=== PATIENT | male | born 1940 | race Caucasian/White ===

== ENCOUNTER → 2018-07-05 10:20 | Outpatient (CLI) | payer MEDICARE, OTHER, SELFPAY ==
[2017-02-19 02:00] VITALS: BMI 30.1
--- NOTE | 2018-07-05 10:20 | MASS_PTH ---
PATIENT: LENORA SHIPLEY LOC: [facility] U#:[id number] AGE/SX: 84/M ROOM: RE07/05/[address]: Dr. Iban Aden MD : 1940 BED: DIS: SPEC #: [id number] RECD: 07/05/18 12:05 STATUS: GUME CRICKET #: [id number] KHARI: 07/05/18 10:[address]: Iban Aden DEPT: SURGICAL PATHOLOGY RECD BY: Angel Chapman Tissues: Neck, NOS Procedures: Surgery Specimen Level III HEADER OPERATION: Excision neck mass (right) PRE-OP DIAGNOSIS: Right neck mass TISSUE SUBMITTED: Excision neck mass (right) MICROSCOPIC DIAGNOSIS Right neck mass, excision: Consistent with epidermal inclusion cyst. SJ:ole 07/08/18 MICROSCOPIC DESCRIPTION Slides are reviewed. GROSS DESCRIPTION Received is one container labeled with the patient's name and not further designated. The specimen consists of multiple irregular fragments of israel soft tissue and skin that in aggregate measure 1.5 x 1.5 x 0.4 cm. The skin piece is bisected. The entire specimen is submitted in one cassette. / SJ:rg 07/05/18 TC:5 [facility]: [id number]
== END ==
PROVIDERS: Family Provider Family Medicine; PCP Family Medicine; Referring Provider Family Medicine; Visit Provider Family Medicine
DX: R22.1 Localized swelling, mass and lump, neck (principal)
CPT/HCPCS: 88304; 88305

== ENCOUNTER → 2018-09-12 15:00 | Outpatient (CLI) | payer MEDICARE, OTHER, SELFPAY ==
[2017-02-19 02:00] VITALS: BMI 30.1
--- NOTE | 2018-09-12 15:00 | CYST_PTH ---
PATIENT: LENORA SHIPLEY LOC: [facility] U#:[id number] AGE/SX: 84/M ROOM: RE09/12/[address]: Dr. Iban Aden MD : 1940 BED: DIS: SPEC #: [id number] RECD: 09/12/18 17:36 STATUS: GUME CRICKET #: [id number] KHARI: 09/12/18 15:[address]: Iban Aden DEPT: SURGICAL PATHOLOGY RECD BY: Titi Drew Tissues: Neck, NOS Procedures: Surgery Specimen Level III HEADER OPERATION: Excision back of neck cyst PRE-OP DIAGNOSIS: Back of neck cyst TISSUE SUBMITTED: Back of neck cyst MICROSCOPIC DIAGNOSIS Back of neck cyst, excision: Skin with underlying tissue with extensive dermal fibrosis, consistent with scar. See comment. SENDY:ole 09/16/18 COMMENT No obvious cyst is noted. Please make reference to previous specimen ([id number]) right neck mass, excision with diagnosis of consistent with epidermal inclusion cyst. MICROSCOPIC DESCRIPTION Slides are reviewed. GROSS DESCRIPTION Received is one container labeled with the patient's name and not further designated. The specimen consists of a israel-white skin ellipse measuring 1.9 x 0.8 cm and up to 0.5 cm in thickness. The specimen is inked, serially sectioned and submitted entirely in one cassette. / SJ:rg 09/13/18 TC:5 CPT: 33260
== END ==
PROVIDERS: Family Provider Family Medicine; PCP Family Medicine; Referring Provider Family Medicine; Visit Provider Family Medicine
DX: L90.5 Scar conditions and fibrosis of skin (principal)
CPT/HCPCS: 88304

== ENCOUNTER → 2019-12-16 16:35 | Outpatient (CLI) | payer MEDICARE, OTHER, SELFPAY ==
[2017-02-19 02:00] VITALS: BMI 30.1
[2019-12-16 17:52] LABS: Absolute Lymphocyte Count 1.41 X10^3/uL (0.83-4.51); Absolute Neutrophil Count 2.9 X10^3/uL (2.0-7.7); Basophil# 0.02 X10^3/uL; Basophil% 0.4 % (0-1); Eosinophil# 0.16 X10^3/uL; Eosinophils% 3.1 % (0-5); Hematocrit 44.3 % (40-54); Hemoglobin 14.9 g/dL (13.0-16.5); Lymphocyte # 1.41 X10^3/ul (4.0); Lymphocyte % 27.2 % (19-41); Mean Corp Hgb Conc 33.6 g/dL (32-36); Mean Corpuscular Hgb 31.4 pg (27.0-32.0); Mean Corpuscular Volume 93.5 fL (80-94); Mean Platelet Vol. 10.1 fl (6.2-12.0); Monocyte# 0.64 X10^3/uL; Monocyte% 12.3 % (0-10); NRBC Flagged by Analyzer 0 % (0-5); Neutrophil # 2.93 X10^3/uL (2.7-7.7); Neutrophil % 56.4 % (47-70); Platelet Count 190 K/mm3 (150-450); RBC Distribution Width CV 12.1 % (11.6-14.6); RBC Distribution Width SD 42.3 fl (35.1-43.9); Red Blood Count 4.74 M/mm3 (4.6-6.2); White Blood Count 5.2 K/mm3 (4.4-11.0)
[2019-12-16 18:23] LABS: AST(SGOT) 20 U/L (15-37); Alanine Aminotransfer ALT/SGPT 31 U/L (16-61); Albumin, Serum 3.3 g/dL (3.2-5.0); Alkaline Phosphatase 104 U/L (45-117); Anion Gap 9 (5-15); BUN 21 mg/dL (7-18); Calcium,Total 9.1 mg/dL (8.5-10.1); Chloride 111 mmol/L (98-107); EST Glomerular Filtration Rate 77 mL/min (>60); Est Glom Filt Rate - Afr Amer 93 mL/min (>60); Globulin 3.3 g/dL (2.2-4.2); Glucose 139 mg/dL (74-106); Potassium 3.8 mmol/L (3.5-5.1); Protein, Total 6.6 g/dL (6.4-8.2); Sodium Level 146 mmol/L (136-145)
--- OUTSIDE RECORDS SUMMARY | 2020-05-02 06:42 | XMS RPT_ITS | CCD ---
:1940 External Reference #:[id number] Author Organization [facility] Care Team Providers Name Role Phone Maura GAN, M Unavailable Allergies Reported Allergen Reaction(s) Severity Date of Onset Location predniSONE dizziness Severe, Severe 11-01-2016 - [facility] ([id number]) Medications Medication Name Sig Date Prescriber Location Aspirin ASPIR-81 81 MG TBEC One [facility] tablet by mouth daily (33342 ) ASPIRIN [id number] Cliff Sydnee Jyotsna hydrOXYzine HYDROXYZINE HCL 25 MG TABS [facility] One tablet by mouth four (52 105) times daily as needed HYDROXYZINE HCL [id number] Cliff Fernandopp Triamcinolone TRIAMCINOLONE ACETONIDE 0.1 [facility] % OINT prn TRIAMCINOLONE (00 636) ACETONIDE [id number] Cliff Goyal Problems Active Problems Category Problem Name Status Date Location Other nutritional; Overweight Active 11-01-2016 - [facility] endocrine; and metabolic (40 344) disorders Past or Other Problems Category Problem Name Status Date Location Abdominal hernia Right inguinal hernia Completed 01-10-2017 - [facility] ([id number]) Abdominal pain Inguinal pain Completed 11-01-2016 - [facility] ([id number]) Results Result Name Value Range Unit Interpretation Flag Date Location office visit: right inguinal hernia repa ir on 2017-01-10 Fall risk assessment No - [facility] 01-10-2017 [facility] ([id number]) Protein mass conc Done 01-10-2017 - [facility] 01-10-2017 [facility] ([id number]) Tobacco smoking status Never - [facility] Surgical [facility] 01-10-2017 [facility] ([id number]) Tobacco smoking status Never smoker 12-15-2016 - [facility] Surgical [facility] 01-10-2017 [facility] ([id number]) lab report: prothrombin time w/inr on 2016-12-27 INR Coag RelTime 1.1 {INR} 12-27-2016 [facility] Surgical (PPP) 12-27-2016 [facility] ([id number]) Prothrombin time 13.3 SECONDS 11.7-14. s 12-27-2016 - [facility] Surgical (PT) Coag time (PPP) 9 7 Associates ([id number]) lab report: partial thromboplast time on 2016-12-27 aPTT Coag time 28.7 24.1-36.2 s 12-27-2016 - [facility] (Bld) ([id number]) lab report: liver profile on 2016-12-27 Albumin mass conc 3.6 3.4-5.0 g/dL 12-27-2016 - [facility] 12-27-2016 [facility] ([id number]) ALP enzyme act/vol 100 45-117 U/L 12-27-2016 - [facility] Surgical (Bld) 12-27-2016 [facility] ([id number]) ALT enzyme act/vol 24 12-78 U/L 12-27-2016 - [facility] 12-27-2016 [facility] ([id number]) AST enzyme act/vol 17 15-37 U/L 12-27-2016 - [facility] 12-27-2016 [facility] ([id number]) Bilirubin mass conc 1.70 0.20-1.00 mg/dL High 12-27-2016 - [facility] Surgical 12-27-2016 [facility] ([id number]) Bilirubin.direct 0.30 0.00-0.30 mg/dL 12-27-2016 - [facility] Surgical mass conc 12-27-2016 [facility] ([id number]) Globulin mass conc 3.2 2.3-3.5 g/dL 12-27-2016 - [facility] Surgical (S) 12-27-2016 [facility] ([id number]) Protein mass conc 6.8 6.4-8.2 g/dL 12-27-2016 - [facility] Surgical 12-27-2016 [facility] ([id number]) lab report: cbc-complete blood cnt no di ff on 2016-12-27 Erythrocyte 12.3 11.6-14.6 % 12-27-2016 - [facility] S urgical distribution width 12-27-2016 Associates Ratio (RBC) ([id number]) Erythrocyte 39.9 35.1-43.9 fL 12-27-2016 - [facility] S urgical distribution width 12-27-2016 [facility] Ratio (RBC) ([id number]) Hematocrit Volume 45.2 40-54 % 12-27-2016 - [facility] Surgical Fraction (Bld) 12-27-2016 [facility] ci[facility] ([id number]) Hemoglobin mass conc 15.7 13.0-16.5 g/dL 7 - [facility] Surgical (Bld) 12-27-2016 Associate [facility] ([id number]) MCH Entitic mass 31.3 27.0-32.0 pg 12-27-2016 - [facility] Surgical (RBC) 12-27-2016 [facility] ([id number]) MCHC mass conc (RBC) 34.7 G/GL 32-36 - [facility] 12-27-2016 Associate [facility] ([id number]) MCV Entitic volume 90.0 80-94 fL 12-27-2016 - [facility] Surgical (RBC) 12-27-2016 Associate [facility] ([id number]) Platelet mean volume 9.3 6.2-12.0 fL - [facility] Surgical Entitic volume (Bld) 7 Associates ([id number]) Platelets #/vol 214 150-450 10*3/mm3 12-27-2016 - [facility] (Bld) 12-27-2016 [facility] ([id number]) RBC #/vol (Bld) 5.02 4.6-6.2 10*6/uL 12-27-2016 - [facility] 12-27-2016 [facility] ([id number]) WBC #/vol (Bld) 5.5 4.4-11.0 10*9/L 12-27-2016 - [facility] 12-27-2016 [facility] ([id number]) office visit: new patient consult- direc t right inguinal hernia on 2016-11-01 Fall risk assessment No 7 - [facility] 11-01-2016 Associate [facility] ([id number]) Protein mass conc Done 11-01-2016 - [facility] 11-01-2016 Associate [facility] ([id number]) Tobacco smoking status Never smoker - - [facility] Surgical [facility] 11-01-2016 Associate [facility] ([id number]) Tobacco smoking status Never - [facility] 11-01-2016 [facility] ([id number]) Vital Signs Vital Sign Description Value / Unit Date Location The following section is limited to 5 en tries per type and includes entries from the following time range: 20161101 - [id number] 9. BMI (Body Mass Index) 29.43 kg/m2 11-01-2016 - 11-01-2016 [facility] ([id number]) Body Temperature 98.29 [degF] 11-01-2016 - 11-01-2016 [facility] ([id number]) Body Temperature 98.3 [degF] 11-01-2016 - 11-01-2016 [facility] ([id number]) BP Diastolic 79 mm[Hg] 11-01-2016 - 11-01-2016 [facility] ([id number]) BP Systolic 125 mm[Hg] 11-01-2016 - 11-01-2016 [facility] ([id number]) BSA (Body Surface Area) 2.16 m2 11-01-2016 - 11-01-2016 [facility] ([id number]) Height 180.34 cm 01-10-2017 - 01-10-2017 [facility] ([id number]) Height 180.34 cm 11-01-2016 - 11-01-2016 [facility] ([id number]) Pulse (Heart Rate) 71 /min 11-01-2016 - 11-01-2016 [facility] ([id number]) Pulse Oximetry 95 % 11-01-2016 - 11-01-2016 [facility] ([id number]) Respiratory Rate 16 /min 11-01-2016 - 11-01-2016 [facility] ([id number]) Weight 95.71 kg 11-01-2016 - 11-01-2016 [facility] ([id number]) Procedures Procedure Name Date Provider Location Dietary management 01-10-2017 - [facility] Surgical education, guidance, 01-10-2017 [facility] ([id number]) and counseling Dietary management 11-01-2016 - [facility] Surgical education, guidance, 11-01-2016 [facility] ([id number]) and counseling Ct abdomen & pelvis w/o 11-01-2016 - Theo Lorenzo MD [facility] Surgical contrast material 12-28-2016 Associates ([id number]) Ct lumbar spine w/o 11-01-2016 - Theo Lorenzo MD [facility] Surgical contrast material 12-28-2016 [facility] ([id number]) Plan of Treatment Plan Description Date Location Appointment Appointment 01-10-2017 - [facility] 01-10-2017 Associates ([id number]) Follow Up as needed Follow Up as needed 01-10-2017 - [facility] Surg ical 01-10-2017 Associates ([id number]) CT Abdomen and pelvis; CT Abdomen and pelvis; 11-01-2016 - [facility] without contrast without contrast 12-28-2016 Associates ([id number]) material material CT Lumbar Spine CT Lumbar Spine 11-01-2016 - [facility] 12-28-2016 [facility] ([id number]) Patient education WEIGHT%20MANAGEMENT [facility] ([id number] 1) Additional Source Comments FOR RECORDS PERTAINING TO PATIENTS WHO ARE OR HAVE BEEN ENROLLED IN A CHEMICAL DEPENDENCY/SUBSTANCE ABUSE PROGRAM, SOME INFORMATION MAY BE OMITTED. This clinical summary was aggregated from multiple sources. Caution should be exercised in using it in the provision of clinical care. This summary normalizes information from multiple sources, and as a consequence, information in this document may materially changethe coding, format and clinical context of patient data. In addition, data may be omittedin some cases. CLINICAL DECISIONS SHOULD BE BASED ON THE PRIMARY CLINICAL RECORDS. [facility] provides no warranty or guarantee of the accuracy or completeness of information in this document.
== END ==
PROVIDERS: PCP Family Medicine; Referring Provider Family Medicine; Visit Provider Family Medicine
DX: R55 Syncope and collapse (principal)
CPT/HCPCS: 36415; 80053; 85025

== ENCOUNTER → 2020-12-28 07:25 | Outpatient (CLI) | payer MEDICARE, OTHER, SELFPAY ==
[2017-02-19 02:00] VITALS: BMI 30.1
[2020-12-28 10:51] LABS: Anion Gap 3 (5-15); BUN 22 mg/dL (7-18); BUN/Creat Ratio 24.3 RATIO (10-20); Calcium,Total 8.7 mg/dL (8.5-10.1); Chloride 107 mmol/L (98-107); Cholesterol 227 mg/dL (200); Creatinine, Serum 0.91 mg/dL (0.70-1.30); EST Glomerular Filtration Rate 86 mL/min (>60); Est Glom Filt Rate - Afr Amer 104 mL/min (>60); Glucose 99 mg/dL (74-106); High Density Lipoprotein 54 mg/dL; Potassium 4.1 mmol/L (3.5-5.1); Sodium Level 140 mmol/L (136-145); Triglycerides 59 mg/dL; Very Low Density Lipoprotein 12 mg/dL (5-40)
== END ==
PROVIDERS: PCP Family Medicine; Referring Provider Family Medicine; Visit Provider Family Medicine
DX: Z00.00 Encounter for general adult medical examination without abnormal findings (principal); Z12.5 Encounter for screening for malignant neoplasm of prostate
CPT/HCPCS: 36415; 80048; 80061; 84153; G0103

== ENCOUNTER → 2021-01-01 07:01 | Outpatient (CLI) | payer MEDICARE, OTHER, SELFPAY ==
--- NOTE | 2021-01-01 07:45 | MRI_ITS ---
STUDY: MRI BRAIN WITHOUT CONTRAST REASON FOR EXAM: Male, 80 years old. HORIZONTAL NYSTAGMUS TECHNIQUE: Standardized multiplanar fat and water weighted pulse sequences were obtained. COMPARISON: CT 02/19/2017 FINDINGS: There is mild cerebral atrophy with widening of the extra-axial spaces and ventricular dilatation. Normal white matter tracts of the supratentorial brain. There is no evidence for recent intracranial ischemia or other cause of cytotoxic edema on diffusion weighted imaging (DWI). Normal T2* images of the brain without demonstrated susceptibility artifact. There is no demonstrated hemosiderin stain. Normal bilateral basal ganglia. Normal thalami. There is no extra-axial fluid accumulation. Normal flow voids within the major intracranial circulation suggesting patency by spin echo criteria. Normal sella turcica, pituitary gland, infundibular stalk, optic chiasm and hypothalamus. Normal tectal plate and pineal gland. Normal midbrain, delta and medulla. Normal cerebellum. Normal basal cisterns. Normal bilateral temporal bones. Normal bilateral internal auditory canals. There are bilateral ocular lens implants with otherwise normal intraorbital contents. Normal visualized paranasal sinuses. Normal calvarium and skull base. Normal visualized soft tissue structures. Normal visualized upper cervical spine. MRI/Brain without Contrast IMPRESSION: Involutional changes of the brain, as described above. No acute infarct. Electronically Signed: Angel Cabral MD at 8:23 EDT Tel , Service support ,
== END ==
PROVIDERS: PCP Family Medicine; Referring Provider Family Medicine; Visit Provider Family Medicine
DX: H55.09 Other forms of nystagmus (principal); R26.89 Other abnormalities of gait and mobility
CPT/HCPCS: 70551

== ENCOUNTER 2021-01-31 16:27 | Emergency (ER) | payer MEDICARE, OTHER, SELFPAY ==
[2021-01-31 16:28] VITALS: BP 159/140; PULSE 78; RESP 18; TEMP 36.5; O2SAT 96; BMI 29.1
--- NOTE | 2021-01-31 16:56 | CT_ITS ---
HISTORY: neck pain EXAMINATION: CT Spine Cervical W/O Contrast Injection TECHNIQUE: Helically acquired images were obtained of the cervical spine. 2D reformatted images were reviewed. A radiation dose optimization technique was used for this scan. IV Contrast dosage and agent: None. COMPARISON: None FINDINGS: VERTEBRAE: No fracture or traumatic subluxation. No discrete lytic or blastic abnormality observed. 4 mm spondylolisthesis at C7/T1. Normal craniocervical junction and cervicothoracic junction. DISCS and SPINAL CANAL: Degenerative discogenic changes are noted. No critical stenosis. NECK SOFT TISSUES: No prevertebral soft tissue swelling. LUNG APICES: Clear. CT/Spine Cervical without Contras IMPRESSION: Degenerative changes. No evidence of acute cervical spinal fracture. Individualized dose optimization techniques were used for this CT. at 1956 Reported and signed by: Joel Erickson MD Electronically Signed: Joel Erickson MD at 19:55 EDT Tel , Service support ,
--- NOTE | 2021-01-31 16:56 | CT_ITS ---
HISTORY: headache TECHNIQUE: Multiple axial images were obtained of the brain without intravenous contrast. A radiation dose optimization technique was used for this scan. IV Contrast dosage and agent: None. COMPARISON: 02/19/17 FINDINGS: # of images incl. paperwork: [id number] PARANASAL SINUSES AND MASTOID AIR CELLS: Clear. INTRACRANIAL HEMORRHAGE: None. BRAIN PARENCHYMA: No CT evidence of stroke. No intracranial masses. There is preservation of the yeh/white matter interface. Posterior fossa structures are unremarkable. There is hypoattenuation of the periventricular white matter. Chronic involutional changes are noted. CSF SPACES: Appropriate for age. There is no hydrocephalus. MASS EFFECT: None. CALVARIUM: No acute fracture. CT/Brain/Head without Contrast IMPRESSION: Chronic involutional and white matter changes. No acute intracranial process. Individualized dose optimization techniques were used for this CT. at 1920 Reported and signed by: Joel Erickson MD Electronically Signed: Joel Erickson MD at 19:19 EDT Tel , Service support ,
[2021-01-31] MEDS: oxyCODONE 5 MG Tablet PO ×2 (17:27→21:27)
--- NOTE | 2021-01-31 21:03 | EX.ED.GENINJ ---
HPI History of Present Illness Chief Complaint: Other, Pain/Inj Informant: patient and spouse/S.O. Narrative Narrative: This patient presents with soreness in his neck. He states he does have a history of significant arthritis. He occasionally has had problems but has been a while. He states on Sunday morning he went to the [place]. He was not swimming or doing things such as that. But he did sit in a slightly uncomfortable chair for many hours out at the fire. He then slept in an abnormal bed that had just a small amount of foam. Ever since getting up he has had soreness in his upper neck. Is on both sides and central. It does not radiate other than locally. He has no numbness tingling weakness. This is not thunderclap type headache. No neurologic symptom. No fevers chills sweats or rash. Staying still makes it much better. Any motion makes it worse. He put a heat pack on it and seems to have gotten worse. No chest pain. No trouble breathing. No tearing or ripping sensation. All of the pain is at the upper portion of his neck. PFSH PFSH Home Medications aspirin 81 mg PO QODAY 12/25/16 [History Last Taken 11/21/16] oxycodone-acetaminophen [Percocet] 1 tab PO Q6H PRN 3 Days #12 tab 01/31/21 [Rx Last Taken Unknown] prednisone 60 mg PO DAILY #15 tab 01/31/21 [Rx Last Taken Unknown] Allergy/AdvReac Type Severity Reaction Status Date / Time No Known Allergies Allergy Verified 01/31/21 16:29 Surgical History (Updated 01/31/21 @ 17:32 by Dori Kang RN) H/O hernia repair Social History Smoking Status: Never smoker ROS ROS ED Constitutional Constitutional ED: Denies chills, fever(s) or sweats Eyes Eyes: Denies blurry vision or change in vision ENT ENT ED: Denies rhinorrhea or sore throat Cardiovascular Cardiovascular: Denies chest pain Respiratory/Chest Respiratory/Chest: Denies cough or dyspnea Gastrointestinal Gastrointestinal: Denies abdominal pain, nausea or vomiting Musculoskeletal Musculoskeletal: Reports neck pain; Denies arthralgias, back pain or myalgias Integumentary Denies rash Neurologic Neurologic: Reports headache(s), paresthesias and other Details: Headache is described in the back of the head only and is really her neck area. Psychiatric Psychiatric: Denies depression Endocrine Endocrinology: Denies polyuria Hematologic/Lymphatic Hematologic/Lymphatic: Denies easy bleeding or easy bruising Allergic/Immunologic Allergic/Immunologic ED: Denies urticaria EXAM Physical Exam Const Vital Signs: 01/31/21 16:28 Temperature 97.7 F L Temperature Source Temporal Pulse Rate 78 Respiratory Rate 18 Blood Pressure 159/140 H Blood Pressure Mean 146 Pulse Ox 96 Oxygen Delivery Method Room Air Positive well nourished and well developed; Negative for unkempt General Appearance ED: well developed; Negative for unkempt or NAD HEENT atraumatic Eyes PERRL and EOMs intact bilaterally Neck Neck Narrative: Patient has some tenderness paraspinally on the neck really at the high cervical area. There is no erythema. There is no mass. There is no meningismus but he is just sore to move. He feels himself still he is well. He can move the lower back and legs without any symptoms. This seems very musculoskeletal. General: tenderness Chest Wall inspection of chest normal Resp normal respiratory effort and clear to auscultation bilaterally Cardio regular rhythm Rate: regular rate GI normal to inspection, nondistended, normoactive bowel sounds and non-tender Palpation: soft Back/Spine normal to inspection Back/Spine Narrative: See above regarding neck. Extremity normal to inspection Neuro oriented x3 Sensorium / Orientation: alert Psych Appearance: Negative for unkempt MDM MDM MDM Narrative Medical decision making narrative: Patient's scans of the neck and head shows no acute process but does show significant arthritis. He is treated with meds for pain. This did help but is starting to wear off. Patient states that about 10 years ago he was on meds for about 2 weeks that calm down his arthritis. I wonder if this was a steroid. I will place him on a short course. Along with pain meds. Radiography Diagnostic Testing: Radiology Impression Brain CT 01/31/21 16:56 IMPRESSION: Chronic involutional and white matter changes. No acute intracranial process. Individualized dose optimization techniques were used for this CT. at 1920 Reported and signed by: Joel Erickson MD Electronically Signed: Joel Erickson MD at 19:19 EDT Tel , Service support , Cervical Spine CT 01/31/21 16:56 IMPRESSION: Degenerative changes. No evidence of acute cervical spinal fracture. Individualized dose optimization techniques were used for this CT. at 1956 Reported and signed by: Joel Erickson MD Electronically Signed: Joel Erickson MD at 19:55 EDT Tel , Service support , Discharge Plan Triage Chief Complaint: Other, Pain/Inj ED Provider: Haile Baez Dx/Rx/DC Orders Clinical Impression: Cervical strain Instructions: ED Neck Sprain or Strain Prescriptions: New oxycodone-acetaminophen [Percocet] 5-325 mg tablet 1 tab PO Q6H PRN (Reason: pain) 3 Days Qty: 12 RF: 0 prednisone 20 mg tablet 60 mg PO DAILY Qty: 15 RF: 0 No Action aspirin 81 MG tablet,chewable 81 mg PO QODAY RF: 0 Primary Care Provider: Iban Aden Referrals: Iban Aden MD [Primary Care Provider] - 3-5 Days if not improving Disposition Disposition: Home, Self Care
[2021-01-31] MEDS: predniSONE 20 MG Tablet 60 MG PO (21:30)
== END 2021-01-31 21:34 | disposition home or self-care (01) ==
PROVIDERS: Emergency Provider Emergency Medicine; PCP Family Medicine
DX: S16.1XXA Strain of muscle, fascia and tendon at neck level, initial encounter (principal); X58.XXXA Exposure to other specified factors, initial encounter; Y93.9 Activity, unspecified; Y92.9 Unspecified place or not applicable; Y99.9 Unspecified external cause status; M19.90 Unspecified osteoarthritis, unspecified site; Z79.82 Long term (current) use of aspirin; Z79.52 Long term (current) use of systemic steroids
CPT/HCPCS: 70450; 72125; 99283; J7030

== ENCOUNTER 2022-01-25 09:00 | Outpatient (RCR) | payer MEDICARE, OTHER, SELFPAY ==
--- NOTE | 2021-12-27 14:43 | HP.PTEVAL_ITS ---
Patient's Visit Information LENORA SHIPLEY is a 81 year old M referred to Physical Therapy by Dr. Iban Aden MD with a diagnosis of BALANCE ISSUES. Date of Evaluation: 12/27/21 Physical Therapist: Parminder Ghotra PT, Cert MDT, OCS - Visit Plan Frequency: 2x /Week Duration: 4 Weeks Plan: PT INTERVENTIONS PROGRESSIVE BALANCE PROGRAM ,GAIT TRAINING,ENDURANCE AND FUNCTIONAL STRENGTHENING - Subjective This 81 y/o male presents to physical therapy with impaired balance. Patient has had gait issues with leaning to side my gait is not normal . Patient seen DR felix PT . Patient had syncope episode as patient describing. Patient has ability to do stairs. Patient describes no pain . Patient denies paresthesia/tingling .Patient has difficulty walking on uneven surfaces. Patient denies any weakness . Patient has no episodes dizziness with supine-sit or sit- stand for orthostatic. Patient has had carotid arties checked. Also last 2 weeks ago had heart monitor worn. Patient denies nausea/VIDALES Patient describes no weakness. Patient reports difficulty walking on uneven surfaces such as grass. Patient has had Patient goals to improve balance and walking. SOCAIL: . VOCATION: retired - Objective POSTURE: WFL. NEURO: denies paresthesia/tingling, reflexes Achilles/patella 1/3. PALAPTION: unremarkable. FLEXABLITY : hamstrings min tight. MMT: quads/hams 4/5,hip 4/5,ankle 5/5. GAIT: reciprocal pattern mild forward lalit - Balance/Special Test Scores Functional Gait Assessment Score: 18 % Disability: 40.0000 CATSIB Score (Max score 120 seconds): 90 Lower Extremity Functional Score: 42 30 Second Chair Rise Test Seconds: 10 - Goals Goal 1:: Patient to be I with HEP for balance Goal Time Frame: 4-6 Weeks Goal 2:: Patient to improve CATSIB BY 5-10 improve balance and risk of falls Goal Time Frame: 4-6 Weeks Goal 3:: Patient to improve functional gait assessment score by 5-10 points to improve gait and decrease risk of falling Goal Time Frame: 4-6 Weeks Goal 4:: Patient to LFES score by 5-10 points to improve QOL and gait Goal Time Frame: 4-6 Weeks Goal 5:: Patient to improve 30sec sit-stand by 3-5 to improve function Goal Time Frame: 4-6 Weeks - Rehabilitation Potential Physical Therapy Diagnosis: This 81 y/o male has balance deficits with decrease CATSCIB ,functional gait assessment and decrease ability with uneven surfaces with impaired deficits on 3 inputs with balance somatosensory, vision and vestibular thus benefit from skilled PT Rehabilitation Potential: Good - Anticipated Interventions Patient/Client Instruction: Educate patient on: Condition, Plan of Care For the Purpose of:: To improve muscle performance and motor function, To improve ability to perform ADL's, To increase tolerance to activity/condition/position, To improve performance and independence with ADL's, To improve ability of physical actions for home/community/work/leisure, To improve gait and locomotor functions, To improve endurance, To improve balance, To improve safety with gait Therapeutic Exercise to Include: Strength training, Endurance training, Balance training, Postural training, Flexibilty training, Gait and locomotor training Comment: BLE For the Purpose of:: To increase ROM, To improve muscle performance and motor function, To improve ability to perform ADL's, To increase tolerance to activity/condition/position, To improve ability of physical actions for home/ community/work/leisure, To increase flexibility/ROM, To improve endurance, To improve balance, To improve safety with gait Thank you for the opportunity to evaluate your patient. For Medicare and Medicare HMO plans, please review the plan of care and approve it. It will need to be FAXED BACK to us at [phone] for Medicare purposes. For Medicare only, by signing this I certify the plan of care. Please let me know if there are questions or concerns regarding this plan of care. Physician Signature: Date:
--- NOTE | 2022-01-25 09:26 | HP.PTDCSUM ---
It has been my pleasure to treat LENORA SHIPLEY referred by Dr. Iban Aden MD, with the diagnosis of BALANCE ISSUES for a total of 9 visit(s). Discharge Date: 01/25/22 Please see the following information for a summary of their discharge status. Subjective: Doing well . Patient had to wear heart monitor will check with DR with results. No falls.. PT helped overall a lot % Improvement: 25 Objective/Function: Good tolerance to progression of dual tasking balance and coordination activities. Improving motor control when compared to previous visit. Most difficulty coordinating reciprocal movement of right leg and left arm. Demonstrates improvement in functional mobility as TUG times all recorded <10 secs. Goal 1:: Patient to be I with HEP for balance Goal Progress: Goal Met Goal 2:: Patient to improve CATSIB BY 5-10 improve balance and risk of falls Goal Progress: Goal Met Goal 3:: Patient to improve functional gait assessment score by 5-10 points to improve gait and decrease risk of falling Goal Progress: Goal Met Goal 4:: Patient to LFES score by 5-10 points to improve QOL and gait Goal 5:: Patient to improve 30sec sit-stand by 3-5 to improve function Goal Progress: Goal Met Plan: D/C Discharge Comments: HEP If there are questions or concerns regarding this patient's physical therapy, please feel free to call me at [phone]. Thank you for the referral of this patient. Sincerely, Parminder Ghotra, PT, Cert MDT, OCS Balance/Gait/Functional tests - Balance/Special Test Scores Functional Gait Assessment Score: 28 % Disability: 6.6700 CATSIB Score (Max score 120 seconds): 105 Lower Extremity Functional Score: 54 30 Second Chair Rise Test Seconds: 10
== END 2022-01-25 19:00 | disposition home or self-care (01) ==
LOC: PT 09:00
PROVIDERS: PCP Family Medicine; Referring Provider Family Medicine; Visit Provider Family Medicine
DX: R26.9 Unspecified abnormalities of gait and mobility (principal)
CPT/HCPCS: 97110; 97162; 97530

== ENCOUNTER → 2022-03-10 | Outpatient (CLI) | payer MEDICARE, OTHER, SELFPAY ==
--- NOTE | 2022-03-10 12:32 | CT_ITS ---
STUDY: CT BRAIN WITHOUT CONTRAST REASON FOR EXAM: Male, 81 years old. Syncope; right arm weakness -- r/o CVA RADIATION DOSAGE (If Supplied By Facility): CTDIvol = ( 44.99 ) mGy, DLP = ( 846.73 ) mGycm TECHNIQUE: Transaxial CT imaging of the brain was performed without administration of intravenous contrast material. Individualized dose optimization techniques were used for this CT. COMPARISON: Comparison is made with prior study dated 01/31/2021. FINDINGS: Normal soft tissue structures. Normal calvarium. There is mild cerebral atrophy with widening of the extra-axial spaces and ventricular dilatation. There are areas of decreased attenuation within the white matter tracts of the supratentorial brain, consistent with microvascular disease changes. Normal basal ganglia and thalami. Normal brainstem. There is mild cerebellar atrophy. There is no intracranial hemorrhage. There are no findings of an acute ischemic infarction. Atherosclerotic calcification of the cavernous portions of the internal carotid arteries bilaterally. Normal visualized paranasal sinuses. CT/Brain/Head without Contrast IMPRESSION: Chronic involutional changes of the brain. Electronically Signed: Helder Azevedo MD at 12:56 EDT ,
== END | disposition home or self-care (01) ==
LOC: CT 12:30
PROVIDERS: PCP Family Medicine; Referring Provider Internal Medicine Cardiovascular Disease; Visit Provider Internal Medicine Cardiovascular Disease
DX: R55 Syncope and collapse (principal); R29.898 Other symptoms and signs involving the musculoskeletal system; I65.29 Occlusion and stenosis of unspecified carotid artery; R07.9 Chest pain, unspecified; R00.0 Tachycardia, unspecified
CPT/HCPCS: 70450

== ENCOUNTER → 2022-03-15 | Outpatient (CLI) | payer MEDICARE, OTHER, SELFPAY ==
--- NOTE | 2022-03-15 06:11 | CDU_ITS ---
Reason For Study: Syncope Rt. Velocities/BP Lt. Velocities/BP Prox CCA 49/10 cm/sec. Prox CCA 53/9 cm/sec. Mid CCA 56/12 cm/sec. Mid CCA 67/13 cm/sec. Dist CCA 53/12 cm/sec. Dist CCA 59/11 cm/sec. Prox ICA 78/17 cm/sec. Prox ICA 63/14 cm/sec. Mid ICA 58/19 cm/sec. Mid ICA 48/18 cm/sec. Dist ICA 54/16 cm/sec. Dist ICA 88/36 cm/sec. Rt. ICA/CCA = 1.4. Lt. ICA/CCA = 1.3. Prox ECA 45 cm/sec. Prox ECA 68/8 cm/sec. Rt. Vert. 34 cm/sec. Lt. Vert. 40/11 cm/sec. Right Extracranial There is heterogeneous, irregular atherosclerotic plaque noted in the right common carotid artery. There is heterogeneous, irregular atherosclerotic plaque noted in the right internal carotid artery. There is no significant atherosclerotic plaque noted in the right external carotid artery. Antegrade flow is noted in the right vertebral artery. Left Extracranial There is heterogeneous, smooth atherosclerotic plaque noted in the left common carotid artery. There is heterogeneous, irregular atherosclerotic plaque noted in the left internal carotid artery. There is no significant atherosclerotic plaque noted in the left external carotid artery. Antegrade flow is noted in the left vertebral artery. Procedure Carotid Duplex 21575. This is a Carotid Duplex examination using B-mode, color flow and specral Doppler. Exam performed in department. VL/Carotid Duplex Ultrasound Interpretation Summary Mild (<50%) stenosis right extracranial internal carotid. Mild (<50%) stenosis left extracranial internal carotid. Patent and antegrade vertebrals bilaterally. Ordering Physician: Iban Cook Referring Physician: Iban Aden Performed By: Autumn Morocho, LORETTA, RVT
--- NOTE | 2022-03-15 06:11 | ECHOD_ITS ---
Reason For Study: Syncope Procedure This was a 2D Doppler, Color Flow transthoracic echocardiogram. The exam was of adequate technical quality. Exam performed in department. Left Ventricle Normal LV size. Left ventricular systolic function is normal. The estimated ejection fraction is 55 %. No evidence for diastolic dysfunction. No regional wall motion abnormalities noted. Right Ventricle Normal RV size. Normal systolic function. Atria Normal left atrium. Normal right atrium. Bubble contrast study negative for right to left interatrial shunt. Mitral Valve There is no mitral annular calcification. Normal mitral valve. Moderate (2+) mitral valve insufficiency. Tricuspid Valve Normal tricuspid valve. Trivial tricuspid valve insufficiency. Right ventricular systolic pressure estimated to be 21 mmHg. Aortic Valve Trisinus/trileaflet aortic valve. Mild focal aortic valve thickening. Mild focal aortic valve calcification. Trivial aortic valve insufficiency. Pulmonic Valve The pulmonic valve is not well visualized. Trivial pulmonic valve insufficiency. Great Vessels Borderline enlarged aortic root. Pericardium/Pleural No pericardial effusion. Medication 20 gauge I.V. with prn adaptor inserted into right arm. Performed a rapid injection of agitated mix of 9 cc saline and 1cc air to assess for atrial septal defect. MMode/2D Measurements & Calculations LVIDd: 4.7 cm IVSd: 1.2 cm Ao root diam: 3.9 cm LVIDs: 3.5 cm LVPWd: 1.0 cm LA dimension: 3.6 cm RVDd: 3.0 cm FS: 25.2 % LAV(MOD-bp): 53.4 ml LA A4 area: 18.8 cm2 RA A4 area: 15.7 cm2 LAV(MOD-bp) Indexed: 24.3 ml/m2 LAV(MOD-sp2): 53.7 ml LAV(MOD-sp4): 52.4 ml Time Measurements MV dec time: 0.28 sec Doppler Measurements & Calculations MV E max david: 49.9 cm/sec Lat Peak E' David: 3.9 cm/sec Med Peak E' David: 4.2 cm/sec MV A max dvaid: 87.4 cm/sec E/E' lat: 12.8 E/E' med: 11.9 MV E/A: 0.57 MV V2 max: 84.4 cm/sec MV P1/2t max david: 53.1 cm/sec Ao V2 max: 178.0 cm/sec MV max P.8 mmHg MV P1/2t: 108.4 msec Ao max P.7 mmHg MV V2 mean: 40.2 cm/sec MV dec slope: 143.6 cm/sec2 Ao V2 mean: 123.5 cm/sec MV mean P.80 mmHg Ao mean P.0 mmHg MV V2 VTI: 31.1 cm MVA(P1/2t): 2.0 cm2 Ao V2 VTI: 43.0 cm AI max david: 492.2 cm/sec LV V1 max: 75.7 cm/sec MR max david: 502.7 cm/sec AI max P.1 mmHg LV V1 max P.3 mmHg MR max P.1 mmHg AI dec slope: 192.1 cm/sec2 MR mean david: 400.1 cm/sec AI P1/2t: 750.6 msec MR mean P.1 mmHg MR VTI: 222.3 cm PA V2 max: 82.1 cm/sec PI end-d david: 124.6 cm/sec TR max david: 214.5 cm/sec TR max P.4 mmHg ECHO/Echo Complete Interpretation Summary Left ventricular systolic function is normal. The estimated ejection fraction is 55 %. Moderate (2+) mitral valve insufficiency. Trivial tricuspid valve insufficiency. Mild focal aortic valve thickening. Mild focal aortic valve calcification. Trivial aortic valve insufficiency. Trivial pulmonic valve insufficiency. Borderline enlarged aortic root. Right ventricular systolic pressure estimated to be 21 mmHg. No evidence for diastolic dysfunction. Ordering Physician: Iban Cook Referring Physician: Iban Cook Performed By: Kev Shea RCS
--- NOTE | 2022-03-15 18:18 | STRESSREP_ITS ---
Stress Test Report Date: 03-15-2022 Procedure: Pharmacologic stress nuclear imaging study Indications: Syncope; chest pain; cardiac ectopy Consent: Per the patient Procedure: The patient underwent pharmacologic (Regadenoson 0.4mg ) evaluation with a peak heart rate of 78 beats per minute (55%predicted maximal heart rate) and a peak blood pressure of 142/80 mmHg. The baseline ECG demonstrated sinus bradycardia; poor R wave progression. The peak pharmacologic ECG demonstrated no obvious ECG changes. There were no cardiac dysrhythmias pretest, during pharmacologic infusion, or recovery. There was no complaint of chest discomfort during pharmacologic infusion or recovery. The examination was discontinued secondary to completion of protocol. Impression: 1. Pharmacologic (Regadenoson) evaluation 2. Peak pharmacologic ECG with no obvious ECG changes. 3. There were no cardiac dysrhythmias pretest, during pharmacologic infusion, or recovery. 4. Nuclear images pending Myocardial perfusion imaging study: Technique: The patient was injected with 14.5 millicuries of technetium 99m Cardiolite and subsequently rest SPECT Cardiolite nuclear imaging was obtained in the horizontal long, vertical long, and short axis views. The patient underwent pharmacologic (Regadenoson) evaluation with a peak heart rate of 78 beats per minute (55% percent predicted maximal heart rate) and a peak blood pressure of 142/80 mmHg. The patient was injected with 44.4 millicuries of technetium 99m Cardiolite and subsequently stress SPECT Cardiolite nuclear imaging was obtained in the horizontal long, vertical long, and short axis views. A gated Cardiolite study at peak stress was obtained. Interpretation: Rest and stress SPECT Cardiolite nuclear imaging status post realignment, normalization, and attenuation correction demonstrate the appearance of body motion during image acquisition as well as the appearance of a small area of subtle diminished tracer uptake near the apical segments without significant change between rest and stress. There is end systolic thickening and brightening. The gated Cardiolite study demonstrates myocardial thickening and inward wall motion. The reported LVEF is 52%. Impression: 1. Rest and stress SPECT her nuclear imaging demonstrate findings appearing compatible with body motion during image acquisition as well as a small area of subtle diminished tracer uptake near the apical segments without significant change between rest and stress appearing compatible with physiologic apical thinning with no myocardial perfusion changes considered diagnostic for associated stress-induced myocardial ischemia. 2. The gated Cardiolite study reports an LVEF of 52%. This note was generated with [employer] software. It may contain incorrect words, spelling, and punctuation that were not noted in checking the note before signing.
== END | disposition home or self-care (01) ==
LOC: CVS 06:10
PROVIDERS: PCP Family Medicine; Referring Provider Internal Medicine Cardiovascular Disease; Visit Provider Internal Medicine Cardiovascular Disease
DX: R55 Syncope and collapse (principal); R07.9 Chest pain, unspecified; I65.23 Occlusion and stenosis of bilateral carotid arteries; R00.0 Tachycardia, unspecified; R29.898 Other symptoms and signs involving the musculoskeletal system
CPT/HCPCS: 78452; 93017; 93306; 93880; A9500; A4216; J2785

== ENCOUNTER 2022-04-06 10:36 | Emergency (ER) | payer MEDICARE, OTHER, SELFPAY ==
[2022-04-06 10:36] VITALS: BP 128/80; PULSE 103; RESP 18; TEMP 35.8; O2SAT 97; BMI 29.2
--- NOTE | 2022-04-06 11:35 | RAD_ITS ---
STUDY: X-RAY - LEFT HAND, ATTENTION SECOND FINGER REASON FOR EXAM: Crush injury of second digit fingertip. TECHNIQUE: 3 view(s) of the finger were obtained. COMPARISON: None. FINDINGS: Normal metacarpal head. Normal metacarpophalangeal joint. Normal proximal phalanx. Normal middle phalanx. Normal distal phalanx. Normal proximal interphalangeal joint. Normal distal interphalangeal joint. There is soft tissue swelling/laceration at the distal aspect of the finger. RAD/Finger(s) Min 2 Views IMPRESSION: Soft tissue swelling/laceration. No demonstrated fracture. Electronically Signed: Amadeo Mackey MD at 12:16 EDT ,
--- NOTE | 2022-04-06 11:37 | EX.ED.UPPERE ---
HPI History of Present Illness Chief Complaint: Laceration Narrative Narrative: 81-year-old male, [id number], presents with a laceration to his left index finger/second digit fingertip. He sustained this 2 hours ago. He states his tetanus immunization is up-to-date. While he was working on a lawnmower, trying to take off the mower deck, he states that a piece fell down near the bracket that attach the mower deck to the mower. It crushed his left index fingertip. He did not notice that he had a laceration until he noticed blood dripping out of his mechanics glove. He does take a baby aspirin but no other blood thinners. He achieved hemostasis by direct pressure. He presents because of the laceration on the finger pad of his left second digit. Additionally, he states when he washed it with cold water he felt a stinging sensation deep within his wound. He denies other injury. [facility] Medical History Atrial tachycardia Balance disorder Cervical strain Right inguinal hernia Syncope Tachycardia Home Medications aspirin 81 mg chewable tablet 162 mg PO BID 02/28/22 [History Last Taken Unknown] famotidine 10 mg chewable tablet 10 mg PO DAILY 02/28/22 [History Last Taken Unknown] gabapentin 300 mg capsule (Neurontin) 300 mg PO QHS 02/28/22 [History Last Taken Unknown] lutein 20 mg capsule 20 mg PO DAILY 03/03/22 [History Last Taken Unknown] Allergy/AdvReac Type Severity Reaction Status Date / Time No Known Allergies Allergy Verified 04/06/22 10:36 Family History Father , 96 COPD (chronic obstructive pulmonary disease) heavy smoker Brother , Complications to MVA Prostate cancer Surgical History H/O hernia repair Social History Smoking Status: Never smoker ROS ROS ED ROS Narrative Constitutional: No fever, no chills. HEENT: No sore throat. No neck pain. No loss of vision. No rhinorrhea. Cardiovascular: No chest pain. No palpitations. No pedal edema. Respiratory: No cough, no shortness of breath. Abdominal: No abdominal pain. No nausea. No vomiting. Genitourinary: No dysuria. No hematuria. Musculoskeletal: No myalgias. No arthralgias. Neurologic: No headaches. No dizziness. No lightheadedness. Skin: No rash. No change in color. Positive laceration on finger pad of left second digit. Psychiatric: No depression. No anxiety. EXAM Physical Exam Narrative Exam Narrative: Afebrile. Vital signs noted. HEENT: Normocephalic. Atraumatic. PERRL, EOMI. Neck soft and supple. No point tenderness or step off. Cardiovascular: Regular rate and rhythm. No murmurs, rubs, or gallops appreciated. Respiratory: No tachypnea. Lungs clear to auscultation bilaterally. Gastrointestinal: Abdomen soft, nontender, with normoactive bowel sounds. No rebound or guarding. Neurological: Awake. Alert. Nonfocal, nonlateralizing. Skin: No rash. Normal color. No pallor. Musculoskeletal: No pedal edema. Full range of motion extremities. 1.5 cm laceration running horizontally across finger pad left second digit distal to DIP joint. Full range of motion of fingertip. Good capillary refill. No active bleeding from wound. Const Vital Signs: 04/06/22 10:36 Temperature 96.5 F L Temperature Source Temporal Pulse Rate 103 H Respiratory Rate 18 Blood Pressure 128/80 H Blood Pressure Mean 96 Pulse Ox 97 Oxygen Delivery Method Room Air MDM MDM MDM Narrative Medical decision making narrative: Given the nature of his crush injury/laceration x-rays were obtained of the left second digit to ensure that there is no fracture/tuft fracture. X-ray of the finger interpreted by myself shows no evidence of fracture or foreign body. He was informed of the risk of infection and scarring and acknowledges an understanding. See procedure note for wound closure details. He is to have the sutures removed in 7 to 10 days by his primary care physician or return to the emergency department. He will look for signs of infection. Disposition is discharged home in stable condition. Procedures Lacerations Right index fingertip: Length: 0.6 in Depth: Skin Shape: Linear Prep: Sterile Conditions Laceration repair: Debrideded (Minimal epidermal skin flap debrided), Irrigated, Lidocaine, Local and Wound explored Number of Sutures/Raymond: 5 Suture Information: Ethilon, Simple and 4-0 Comment: Patient tolerated procedure well. Discharge Plan Triage Chief Complaint: Laceration ED Provider: Jaime Bennett Dx/Rx/DC Orders Clinical Impression: Crush injury to finger, Finger laceration Instructions: ED Crush Injury, Hand, ED Laceration, Hand: All Closures Prescriptions: No Action lutein 20 mg capsule 20 mg PO DAILY Rx Instructions: give with meal/snack gabapentin [Neurontin] 300 mg capsule 300 mg PO QHS famotidine 10 mg tablet,chewable 10 mg PO DAILY aspirin 81 mg tablet,chewable 162 mg PO BID Primary Care Provider: Iban Aden Referrals: Iban Aden MD [Primary Care Provider] - 10 Day for suture removal Disposition Disposition: Home, Self Care
[2022-04-06] MEDS: Lidocaine 1% (20 ml mdv) 20 ML Vial 10 ML INFILT (11:42)
[2022-04-06 13:44] VITALS: RESP 18
== END 2022-04-06 13:45 | disposition home or self-care (01) ==
PROVIDERS: Emergency Provider Emergency Medicine; PCP Family Medicine; Visit Provider Emergency Medicine
DX: S61.211A Laceration without foreign body of left index finger without damage to nail, initial encounter (principal); W28.XXXA Contact with powered lawn mower, initial encounter; Z79.82 Long term (current) use of aspirin; Z79.899 Other long term (current) drug therapy
CPT/HCPCS: 12001; 73140; 99283

== ENCOUNTER → 2023-07-18 | Outpatient (CLI) | payer OTHER, MEDICARE, SELFPAY ==
--- OUTSIDE RECORDS SUMMARY | 2023-07-18 16:13 | XMS RPT_ITS | CCD ---
Author Name Unknown Address [address] [place] [address] Organization [facility] Care Team Providers Care Inspector [employer] Name Role Phone Maura GAN, Theo Lancaster Unavailable [phone] Allergies Allergy Classification Reported Allergen(s) Allergy Type Date of Onset Reaction(s) Facility (2 sources) [facility] Allergy 11-01-2016 dizziness [facility] Work Phone: Medications Completed/Discontinued Medications Medication Drug Class(es) Dates Sig (Normalized) Sig (Original) aspirin 81 mg delayed release oral tablet (2 sources) Platelet Aggregation Inhibitor, Nonsteroidal Anti-inflammatory Drug take 1 tablet by mouth once daily ASPIR-81 81 MG TBEC One tablet by mouth daily ASPIRIN [id number] Cliff Goyal hydrOXYzine hydrochloride 25 mg oral tablet (2 sources) Antihistamine take 1 tablet by mouth four times daily as needed HYDROXYZINE HCL 25 MG TABS One tablet by mouth four times daily as needed HYDROXYZINE HCL [id number] Cliff Goyal triamcinolone acetonide 0.001 mg/mg topical ointment (2 sources) Corticosteroid TRIAMCINOLONE ACETONIDE 0.1 % OINT prn TRIAMCINOLONE ACETONIDE [id number] Cliff Goyal Problems Active Problems Problem Classification Problem Date Documented Da te Episodic/Chronic Other nutritional; endocrine; and metabolic disorders (2 sources) Overweight; Translations: [Overweight] Onset: 11-01-2016 11-01-2016 Chronic Past or Other Problems Problem Classification Problem Date Documented Da te Episodic/Chronic Abdominal hernia (1 source) Right inguinal hernia ; Translations: [Unilateral inguinal hernia, without obstruction or gangrene, not specified as recurrent] Onset: 01-10-2017 01-10-2017 Episodic Abdominal pain (2 sources) Inguinal pain; Translations: [Pelvic and perineal pain] Onset: 11-01-2016 11-01-2016 Episodic Results Test Name Value Interpretation Reference Range Facil ity Vital Signs Date Time Vital Sign Value Performing Clinician Facility 01-10-2017 08:54-0400 Height 180.34 cm Theo Lorenzo MD [facility] Work Phone: 11-01-2016 14:15-0400 BMI (Body Mass Index) 29.43 kg/m2 Theo Lorenzo [facility] Work Phone: 11-01-2016 14:15-0400 Body Temperature 98.3 [degF] Theo Lorenzo [facility] Work Phone: 11-01-2016 14:15-0400 Body Temperature 98.29 [degF] Theo Lorenzo MD [facility] Work Phone: 11-01-2016 14:15-0400 BP Diastolic 79 mm[Hg] Theo Lorenzo [facility] Work Phone: 11-01-2016 14:15-0400 BP Systolic 125 mm[Hg] Theo Lorenzo [facility] Work Phone: 11-01-2016 14:15-0400 BSA (Body Surface Area) 2.16 m2 Theo Lorenzo [facility] Work Phone: 11-01-2016 14:15-0400 Height 180.34 cm Theo Lorenzo MD [facility] Work Phone: 11-01-2016 14:15-0400 Pulse (Heart Rate) 71 /min Theo Lorenzo MD [facility] Work Phone: 11-01-2016 14:15-0400 Pulse Oximetry 95 % Theo Lorenzo MD [facility] Work Phone: 11-01-2016 14:15-0400 Respiratory Rate 16 /min Theo Lorenzo MD [facility] Work Phone: 11-01-2016 14:15-0400 Weight 95.71 kg Theo Lorenzo MD [facility] Work Phone: Procedures Date Procedure Procedure Detail Performing Clinician Start: 01-10-2017 End: 01-10-2017 Dietary management education, guidance, and counseling Theo Lorenzo MD Start: 11-01-2016 End: 11-01-2016 Dietary management education, guidance, and counseling Theo Lorenzo MD Start: 11-01-2016 End: 12-28-2016 Ct abdomen & pelvis w/o contrast material Theo Lorenzo MD Work Phone: Start: 11-01-2016 End: 12-28-2016 Ct lumbar spine w/o contrast material Theo Lorenzo MD Work Phone: Plan of Treatment Date Care Activity Detail Author Start: 01-10-2017 End: 01-10-2017 Appointment Appointment [facility] Work Phone: Start: 01-10-2017 End: 01-10-2017 Follow-up visit Follow Up as needed [facility] Work Phone: Start: 11-01-2016 End: 12-28-2016 Ct abdomen & pelvis w/o contrast material CT Abdomen and pelvis; without contrast material [facility] Work Phone: Start: 11-01-2016 End: 12-28-2016 Ct lumbar spine w/o contrast material CT Lumbar Spine [facility] Work Phone: Patient Education [facility] Work Phone: Additional Source Comments FOR RECORDS PERTAINING TO PATIENTS WHO ARE OR HAVE BEEN ENROLLED IN A CHEMICAL DEPENDENCY/SUBSTANCEABUSE PROGRAM, SOME INFORMATION MAY BE OMITTED. This clinical summary was aggregated from multiple sources. Caution should be exercised in using it in the provision of clinical care. This summary normalizes information from multiple sources, and as a consequence, information in this document may materially change the coding, format and clinical context of patient data. In addition, data may be omitted in some cases. CLINICAL DECISIONS SHOULD BE BASED ON THE PRIMARY CLINICAL RECORDS. [facility] [facility]. provides no warranty or guarantee of the accuracy or completeness of information in this document.
== END | disposition home or self-care (01) ==
PROVIDERS: PCP Family Medicine; Referring Provider Family Medicine; Visit Provider Family Medicine
DX: L02.91 Cutaneous abscess, unspecified (principal)
CPT/HCPCS: 87070; 87205